=== PATIENT | male | born 1980 | race African-American/Black ===

== ENCOUNTER 2022-09-23 13:25 | Emergency (ER) | payer MEDICAID ==
[~2022-09-23] VITALS: Ht 180.3 cm; Wt 80.0 kg
[2022-09-23] MEDS ORDERED: KETOROLAC 30MG/ML VIAL IM ONE (15:15)
[2022-09-23] MEDS ORDERED: AMOX1TAB16 MT (16:54)
[2022-09-23] MEDS ORDERED: IBUP-2029 MT (16:54)
[2022-09-23] MEDS ORDERED: OFLO5DRO4 LEFT EAR (17:14)
[2022-09-23 17:22] VITALS: BP 128/86
== END 2022-09-23 17:23 | disposition home or self-care (01) ==
LOC: ER 13:25
DX: H66.91 Otitis media, unspecified, right ear (principal)
CPT/HCPCS: 96372; 99283; J1885; Z7610

== ENCOUNTER 2023-01-19 07:55 | Emergency (ER) | payer MEDICAID ==
[~2023-01-19] VITALS: Ht 185.4 cm; Wt 70.0 kg
[~2023-01-19 07:55] MED LIST: AMOX1TAB16 MT; IBUP-2029 MT; OFLO5DRO4 LEFT EAR
[2023-01-19 07:59] VITALS: O2SAT 99
[2023-01-19] MEDS ORDERED: ONDANSETRON 4MG ODT PO STA (08:13)
[2023-01-19] MEDS ORDERED: SODIUM CHLORIDE 0.9% 1,000 ML IV ONE ×2 (08:15→09:45)
[2023-01-19 08:41] LABS: BASOPHILS % 0.3 % (0.0-2.0); EOSINOPHILS % 0.1 % (0.0-5.0); HEMATOCRIT. 45.1 % (42.0-52.0); HEMOGLOBIN. 15.1 g/dL (14.0-18.0); MEAN CORPUSCULAR HEMOGLOBIN 32.1 pg (28.0-32.0); MEAN CORPUSCULAR HGB CONC 33.5 g/dL (31.0-37.0); MEAN CORPUSCULAR VOLUME 95.7 fL (80.0-94.0); MEAN PLATELET VOLUME 8.6 fl (7.4-10.4); MONOCYTES % 13.8 % (2.0-8.0); NEUTROPHILS % 63.8 % (40.0-76.0); PLATELET 305 x1000/uL (130-400); RED BLOOD CELL COUNT 4.71 mill/uL (4.7-6.1); RED CELL DISTRIBUTION WIDTH 14.3 % (11.6-14.6); WHITE BLOOD COUNT 8.4 x1000/uL (4.5-11.0)
[2023-01-19 09:01] LABS: CHLORIDE 107 mEq/L (98-107); INDEX HEMOLYSI 1 (1-3); INDEX ICTERIC 1 (1-4); INDEX LIPEMIC 1 (1-3); POTASSIUM 3.3 mEq/L (3.5-5.1); SODIUM 136 mEq/L (136-145)
[2023-01-19 09:11] LABS: ALANINE AMINOTRANSFERASE 20 IU/L (13-61); ASPARTATE AMINOTRANSFERASE 13 IU/L (15-37); BILIRUBIN TOTAL 0.7 mg/dL (0.1-1.0); CALCIUM 8.9 mg/dL (8.5-10.1); CARBON DIOXIDE 23 mEq/L (21-32); CREATININE 0.9 mg/dL (0.6-1.3); GLUCOSE 107 mg/dL (70-105); PROTEIN TOTAL 8.2 g/dL (6.0-8.3); UREA NITROGEN BLOOD 17 mg/dL (7-21)
[2023-01-19] MEDS ORDERED: POTASSIUM CHLORIDE 20MEQ TABLET SR PO NR (09:45)
[2023-01-19 11:31] LABS: CLARITY URINE CLOUDY (CLEAR); COLOR URINE DARK YELLOW (YELLOW); GLUCOSE URINE NEGATIVE (NEGATIVE); KETONES URINE 1+ (NEGATIVE); LEUKOCYTE ESTERASE URINE TRACE (NEGATIVE); NITRITE URINE NEGATIVE (NEGATIVE); OCCULT BLOOD URINE NEGATIVE (NEGATIVE); PROTEIN URINE 1+ (NEGATIVE)
[2023-01-19 11:38] VITALS: BP 132/75; PULSE 91; RESP 16; TEMP 98.7
[2023-01-19 12:17] LABS: BACTERIA URINE 1+; SQUAMOUS EPITHELIAL CELL URINE NONE SEEN /lpf (RARE/1+); YEAST URINE NONE SEEN
== END 2023-01-19 11:39 | disposition home or self-care (01) ==
LOC: ER 08:05
DX: K52.9 Noninfective gastroenteritis and colitis, unspecified (principal)
CPT/HCPCS: 99284; 96360; 71045; 96361; 80053; 81003; 83690; 85025; 36415; Q0162; J7030